=== PATIENT | male | born 1930 | race Caucasian/White ===

== ENCOUNTER → 2017-04-26 | Day surgery (SDC) | payer MEDICARE ==
[~2017-04-26] VITALS: Ht 180.3 cm; Wt 85.7 kg
[2017-04-26] VITALS (10 sets, daily range): BP systolic 118–147; BP diastolic 56–88; PULSE 57–64; RESP 15–20; O2SAT 96–100
[~2017-04-26] MED LIST: ATOR20TA65 PO; Dexamethasone 4 mg/mL Inj IVPUSH PRN; EPHEDrine Sulfate 50 mg/mL Inj IVPUSH PRN; FUR20 PO; HYDROmorphone 1 mg/mL Inj IVPUSH PRN; LISI10TA PO; Lactated Ringer's 1,000 ML IV ONE; Lactated Ringer's 1,000 ML IV SCH; Lactated Ringer's 500 ML IV PRN; MAGN250T29 PO; METO100T3 PO; MULT-1086 PO; MetoCLOpramide 5 mg/mL 2 mL Inj IVPUSH PRN; OMEG500C PO; Ondansetron 2 mg/mL 2 mL Inj IVPUSH PRN; Phenylephrine 10,000 mCg/mL Inj IVPUSH PRN; Phenylephrine/NS 100 mCg/mL 10 mL Syringe IVPUSH ONE; Propofol 10,000 mCg/mL 20 mL Inj ONE; RIVA15TA PO; Succinylcholine Chloride 20 mg/mL 5 mL Inj ONE; fentaNYL-PF 50 mCg/mL 2 mL Inj IVPUSH PRN; fentaNYL-PF 50 mCg/mL 2 mL Inj ONE
--- NOTE | 2017-04-26 14:33 | PCM.HPANE ---
Patient Data Surgeon Admitting Provider: Attending Provider:Jigar Law MD Primary Care Physician:Heber Du DO Other Provider:Dara Julien Anesthesia Reason for Visit Common Bile Duct Mass Ht/WT & BMI Height (Feet): 5 Height (Inches): 11 Weight (Kilograms): 85.73 Body Mass Index 26.00 Allergies Coded Allergies: Penicillins (Verified Allergy, Severe, 04/26/17) Past Anesthesia History Anesthesia History: Denies:: Abnormal Airway, Anesthesia Reactions, Difficult Intubation, Fam Anesthesia Reaction, Fam Malignant Hypertherm, Malignant Hyperthermia Diabetes History Hx Diabetes?: No MRSA MRSA: No Medications Blood Thinner: Xarelto Last Dose Blood Thinner: Apr 22, 2017 Home Meds Incl Beta Sarika: Yes Date Beta Sarika Taken: Apr 26, 2017 Time Beta Sarika Taken: 0700 Reported Medications Magnesium Oxide (Magnesium)250 Mg Zenzrf116 Mg PO DAILY 11/16/16 Multivit-Min/Iron Fum/Folic AC (Wgjzu-Hqvcmsb-Zgvtrael Tablet)7.5 Mg Iron-400 Mcg Tablet1 Each PO DAILY 11/16/16 Rivaroxaban (Xarelto)15 Mg Cfksho96 Mg PO DAILY 11/16/16 Furosemide 20 Mg Tab30 Mg PO DAILY Ref 0 11/16/16 Lisinopril 10 Mg Txmitw81 Mg PO DAILY Ref 0 11/16/16 Metoprolol Tartrate 100 Mg Zhapyt942 Mg PO BID Ref 0 11/16/16 Atorvastatin Calcium 20 Mg Bvfmya98 Mg PO DAILY Ref 0 11/16/16 [place]-3 Fatty Acids (Fish Oil)500 Mg Capsule.dr1,000 Mg PO BID 06/17/14 History History of ENT Problems?: No HEENT History: Positive for:: Hearing Problem Denies:: Abnormal Airway Cataracts (had surg 2013) Difficult Intubation Dysphagia Sinus Problem Denture Type: None Teeth Condition: Missing Teeth Hx of Heart Problems?: Yes Cardiovascular History: Positive for:: Atrial Fibrillation (A FIB/FLUTTER/ ABLATION/A FIB NOW NSR & PACER) Cardiac Surgery (HEART CATH 2004/CABG 3 VESSEL X2/ABLATION/PACER) Edema Hypertension Irregular Heartbeat Pacemaker Denies:: AICD Chest Pain Congestive Heart Failure Heart Murmur Rheumatic Fever Thrombophlebitis Valvular Heart Disease Other History/Comments S/P PACEMAKER, AND cabg, GOOD ACTIVITY TOLERANCE Hx of Respiratory Problem?: No Respiratory History: Positive for:: Chest Surgery (HEART BYPASS) Denies:: Asthma COPD Cough Dyspnea Emphysema Hemoptysis Pneumonia Tuberculosis Other History/Comment ROS negative, denies CPAP Hx Neurologic Problems?: No Neurological History: Positive for:: Dizziness (MENIERE'S) Denies:: Alzheimer's Disease CVA Dementia Headaches Parkinson's Disease Seizures Hx of GI Problems?: Yes Other History/Comment common bile duct mass Hx of Problems?: No Genitourinary History: Denies:: HX of Hemodialysis Kidney Stones Urinary Tract Infection HX of Peritoneal Dialysis: No Male Hx: Positive for:: Prostate Problems (PROSTATE CA 1994) Denies:: Scrotal Mass Testicular Surgery Skin History: Denies:: History Skin Disorders? Pressure Ulcers Hx Musculoskeletal Problems?: No Musculoskeletal History: Denies:: Back Injury Fibromyalgia Joint Replacement Musculoskeletal Trauma Hx of Psycho/Social Problems?: No Psycho Social History: Denies:: Anxiety Bipolar Disorder Hx Depression Suicide Attempt Hx Surgeries?: Yes (ileostomy, colectomy,hernia repair, PACER, BYPAS X2,) Hx Any Other Health Problems?: Yes Other History: Positive for:: Cancer ([id number]) Hospitalization Denies:: Endocrine Disease Thyroid Disease History Blood Transfusions: Positive for:: Blood Transfusions Denies:: Blood Transfuse Reaction Hx Diabetes: No Hx Alcohol Use: Yes (occasionally)Hx Substance Use: No Smoking Status: Former Smoker Have You Smoked inLast 12 mo: No Stop/Bang Treated for Sleep Apnea?: No Do You Have a CPAP Machine?: No S-Snoring: Do You Snore Loudly: No T-Tired: feel tired, fatigued: No O-Obsered: Observed not breath: No P-Blood Pressure: treated: Yes B- Body Mass Index > 35 kg/m2: Yes A- Age over 50: Yes N- Neck Large Circumference: No G- Gender Male: Yes RAHEL Total Score: 4 RAHEL Category 2: Yes Risk Assessment Category Category 1A: Patient has history of documented sleep apnea, and HAS NOT received any narcotic, sedative or anesthesia administration during this stay. Category 1B: Patient has history of documented sleep apnea, and HAS received any narcotic , sedative or anesthesia administration during this stay Category 2: Patient has SUSPECTED Obstructive Sleep Apnea, and HAS received any narcotic , sedative or anesthesia administration during this stay. Category 3: Patient has SUSPECTED Obstructive Sleep Apnea and HAS NOT received narcotic, sedative or anesthesia administration during this stay. Category 4: Outpatient in Procedural Areas with known sleep apnea or who screen positive for High Risk via the STOP/BANG questionnaire. Exam Exam Vital Signs Vital Signs Date Time Temp Pulse Resp B/P Pulse Ox O2 Delivery O2 Flow Rate FiO2 04/26/17 14:06 57 147/88 98 Room Air General Appearance: Alert, Oriented X3, Cooperative, No Acute Distress HEENT/AIRWAY: MP 2 Lungs: Clear to Auscultation, Normal Air Movement Heart: Exam Unremarkable, Regular Rate/Rhythm, No Murmurs/Rubs/Gallops Plan Impression Patient chart reviewed, patient interviewed and anesthestic plan with risks, benefits, and alternatives discussed, and informed consent obtained. ASA Physical Status: ASA3 Severe Disease Anesthetic Plan: GA Bene/Risks/Altern/Consents: Yes HP Complete Prior to Induction: Yes Chema Santos MD Apr 26, 2017 14:33
--- NOTE | 2017-04-26 17:14 | PCM.ANEP1 ---
Post Anesthesia PACU Phase 1 Assessment Vital Signs Vital Signs Date Time Temp Pulse Resp B/P Pulse Ox O2 Delivery O2 Flow Rate FiO2 04/26/17 17:10 60 16 126/61 97 Room Air 04/26/17 17:05 62 15 130/72 100 Room Air 04/26/17 17:00 36.1 62 16 144/75 100 Simple Mask 8 04/26/17 14:06 57 147/88 98 Room Air Anesthetic Administered: GA Level of Alertness: Awake, talking Pain: No Nausea or Vomiting: No CV Function & Hydration Stable: Yes Airway Device: Oxygen Delivery: Simple Mask Lungs: Clear to Auscultation, Normal Air Movement Dermatome Level: Full Sensation PACU Phase 2 Assessment Complications: No Follow up Care: No Patient Instructions Provided: N/A Chema Santos MD Apr 26, 2017 17:14
--- NOTE | 2017-04-26 17:48 | ENDO ---
[address] [address] ENDOSCOPY PROCEDURE PATIENT: SOPHIE MORAN : 1930 MR#: [id number] ADMIT: 04/26/2017 JOB ID: [id number] DATE OF SERVICE: 04/26/2017 PROCEDURE: Endoscopic ultrasound. INDICATIONS: The patient had cross sectional imaging performed which suggested the possibility of additional CBD stone versus mass. The patient has an indirect hyperbilirubinemia, however, the remainder of his liver function tests are normal. He has no complaints from a GI standpoint at the present time. INSTRUMENTS USED: GF-UCT 180 linear echoendoscope as well as GIF H 180 standard upper endoscope and a TJF Q180V side-viewing duodenoscope. Please see Dr. Erich Santos's anesthesia report for details regarding ASA classification, Mallampati score, and general anesthesia. PROCEDURE DETAILS: After informed consent was obtained, the patient was brought into the GI suite, where he was placed under general anesthesia. He was placed in a left lateral decubitus position. The standard EGD scope was inserted through the bite block and advanced without difficulty to the second portion of the duodenum. FINDINGS: Normal exam. Next, the linear echo endoscope was then introduced through the bite block and advanced without difficulty to the second portion of the duodenum. Linear echo endoscopic imaging demonstrated the followin. In the distal CBD, there appeared to be a circumferential hypo and hyperechoic filling lesion in the distal CBD. This lesion appeared round and measured approximately 8mm. This lesion cast a shadow suggestive of a CBD stone. The bile duct in the distal CBD measured approximately 8-9 mm. Flow was noted in the portal vein. 2. The pancreatic duct was identified and appeared to be normal in course and caliber. 3. The pancreatic parenchyma was slightly hyperechoic. 4. The splenic flow was identified in the splenic vein and artery. 5. The celiac axis was identified and appeared unremarkable. 6. Gallbladder was seen and no obvious stones were noted in the bile duct. 7. Examined portions of left lobe of liver were unremarkable. 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 The EUS scope was then withdrawn and then the side-viewing duodenoscope was introduced without difficulty to the second portion of the duodenum. The ampulla was identified and appeared unremarkable. Using the Olympus CleverCut tome, selective biliary cannulation was achieved with wire guidance. The pancreatic duct was not intubated or injected with contrast. Initial cholangiogram demonstrated a dilated distal common bile duct measuring approximately 8.5 mm with complete lack of contrast in the distal CBD suggestive of mass lesion. Filling of the intrahepatics was noted which appeared unremarkable. The common hepatic duct measured approximately 6-7 mm. With the [place] cut tome I went through this mass lesion several time and appeared to be friable. Next, a moderate-size sphincterotomy was performed. Following sphincterotomy, did not appreciate any flow of contrast or bile. I elected to perform brushings of this shelf-like area in the distal CBD. This lesion in the distal CBD appeared to be friable. Following brushings, I placed a 10-[place] x 7 cm plastic stent. Following placement of the stent, there was rapid flow of contrast and bile seen. IMPRESSION: Endoscopic retrograde cholangiopancreatography status post sphincterotomy and biliary stent placement for distal common bile duct mass. RECOMMENDATIONS: Await common bile duct brushings. If brushings are inconclusive, will refer for spy glass evaluation of the distal CBD lesion. Additionally, would recommend holding anticoagulation for 48 hours. COMPLICATIONS: None. ESTIMATED BLOOD LOSS: 0. MTDD
--- NOTE | 2017-04-26 20:06 | DRSVH ---
PROCEDURE: X-RAY E.R.C. BILIARY DUCTS ([id number]) INDICATIONS: STONE IN BILIARY DUCT TECHNIQUE: Fluoroscopic spot films were acquired by the gastroenterology service during ERCP procedu re. COMPARISON: None. FINDINGS: 4 C-arm films are presented. These show an endoscope from the superior aspect. There is a w brigette into the common bile duct and into the hepatic duct. There is suggestion of a filling defect in t he common hepatic duct into locations. The third and fourth images show a biliary stent in place with some drainage of contrast from the endoscopic cholangiogram. IMPRESSION: 1. ERC shows likely 2 filling defects in the common hepatic duct. 2. Biliary stent placed. Dictated by: Chinedu Corbett M.D. on 04/26/2017 at 20:02 Approved by: Chinedu Corbett M.D. on 04/26/2017 at 20:04
--- NOTE | 2017-05-02 16:15 | PATH ---
SURGICAL PATHOLOGY Attending Physician:Cony Hunt CASE STATUS: Signed Out PATIENT NAME: SOPHIE MORAN PID: [id number] : 1930 DATE COLLECTED:04/26/2017 00:00 SPECIMEN: Common Bile Duct CLINICAL HISTORY: 1). COMMON BILE DUCT BRUSHING FINAL DIAGNOSIS: Common Bile Duct, Brushing: Strips of biliary and small bowel mucosa with focal active inflammation. Negative for dysplasia or malignancy. Scant fragments of pigmented material suggestive of choledocholithiasis. ICD10: K83.1 NOTE: As part of routine quality assurance project manager, Dr. Lawler has reviewed this case and agrees with the above interpretation. GROSS DESCRIPTION: The specimen is received in one formalin filled container labeled with the patient's name, sublabeled "common bile duct brushing" scraped from a wire brush and filtered is a scant aggregate of mucoid material which is filtered wrapped and entirely submitted in one cassette 04/27/2017DC ICD-9 CODES: CPT CODES: 1: 96897 Electronically Signed Out Gagan Avila MD, Ph.D. [facility] [address], [place] [address] Technical component performed at [facility], [address] [place] [address] Ave[address], [place], [address]
== END | disposition home or self-care (01) ==
LOC: END 02:28
PROVIDERS: ATTEND Internal Medicine Gastroenterology
DX: K83.0 Cholangitis (principal); C61 Malignant neoplasm of prostate; C78.80 Secondary malignant neoplasm of unspecified digestive organ; I10 Essential (primary) hypertension; Z95.1 Presence of aortocoronary bypass graft; Z95.0 Presence of cardiac pacemaker; Z93.2 Ileostomy status
CPT/HCPCS: 43237; 43262; 43274; 74328; J0330; J2370; J2704; J3010; J7120; Q9967

== ENCOUNTER 2017-04-27 18:06 | Emergency (ER) | payer MEDICARE ==
[~2017-04-27] VITALS: Ht 182.9 cm; Wt 84.1 kg
[~2017-04-27 18:06] MED LIST changes: -Dexamethasone 4 mg/mL Inj IVPUSH PRN; -EPHEDrine Sulfate 50 mg/mL Inj IVPUSH PRN; -HYDROmorphone 1 mg/mL Inj IVPUSH PRN; -Lactated Ringer's 1,000 ML IV ONE; -Lactated Ringer's 1,000 ML IV SCH; -Lactated Ringer's 500 ML IV PRN; -MetoCLOpramide 5 mg/mL 2 mL Inj IVPUSH PRN; -Ondansetron 2 mg/mL 2 mL Inj IVPUSH PRN; -Phenylephrine 10,000 mCg/mL Inj IVPUSH PRN; -Phenylephrine/NS 100 mCg/mL 10 mL Syringe IVPUSH ONE; -Propofol 10,000 mCg/mL 20 mL Inj ONE; -Succinylcholine Chloride 20 mg/mL 5 mL Inj ONE; -fentaNYL-PF 50 mCg/mL 2 mL Inj IVPUSH PRN; -fentaNYL-PF 50 mCg/mL 2 mL Inj ONE
[2017-04-27 18:08] VITALS: BP 163/77; PULSE 60; RESP 23; O2SAT 96
[2017-04-27 18:28] LABS: BASOPHILS % (AUTO) 0.1 % (0-3); EOSINOPHILS % (AUTO) 1.1 % (0-5); Mean Corpuscular Hemoglobin 31.1 pg (27.0-35.0); NEUTROPHILS % (AUTO) 73.8 % (40-74); Platelet Count 146 bil/L (150-400)
[2017-04-27 18:39] LABS: Magnesium 1.9 mg/dL (1.6-2.6)
--- NOTE | 2017-04-27 18:41 | ED.REPORT ---
HPI-Preg Under 20 Weeks Date of Service Apr 27, 2017 ED Provider: Nursing Notes Stated Complaint: ABDOMINAL PAIN Chief Complaint: Male Abdominal Pain Allergies: Coded Allergies: Penicillins (Verified Allergy, Severe, 04/26/17) Scheduled Atorvastatin Calcium (Atorvastatin Calcium) 20 Mg Tablet 20 MG PO DAILY Furosemide (Furosemide) 20 Mg Tab 30 MG PO DAILY Lisinopril (Lisinopril) 10 Mg Tablet 10 MG PO DAILY Magnesium Oxide (Magnesium) 250 Mg Tablet 250 MG PO DAILY Metoprolol Tartrate (Metoprolol Tartrate) 100 Mg Tablet 100 MG PO BID Multivit-Min/Iron Fum/Folic AC ([place]rpj-Dmmqgik-Ryltjhpg Tablet) 7.5 Mg Iron-400 Mcg Tablet 1 EACH PO DAILY [place]-3 Fatty Acids (Fish Oil) 500 Mg Capsule.dr 1,000 MG PO BID Rivaroxaban (Xarelto) 15 Mg Tablet 15 MG PO DAILY Past Medical History Past Medical History Angina A-fib MENIERE'S disease Reports: Cancer, Coronary artery disease, Hyperlipidemia, Hypertension Past Surgical History Cardiac Surgery (HEART CATH 2004/CABG 3 VESSEL X2/ABLATION/PACER) Pacemaker 10/2009 ILEOSTOMY PERISTOMAL HERNIA-ADHESOLYSI Smoking History Former Smoker Social History Alcohol Use: "Social" Drug Use: Denies drug use Physical Exam Initial Vital Signs Vital Signs (First) Date Time Temp Pulse Resp B/P Pulse Ox O2 Delivery O2 Flow Rate FiO2 04/27/17 18:08 36.3 60 23 163/77 96 Room Air Interpretation & Diagnostics Lab Results Interpretation Result Diagram: 04/27/17 1819 Test 04/27/17 18:19 White Blood Count 9.5th/mm3 (3.8-10.1) Red Blood Count 4.70mil/mm3 (4.40-5.80) Hemoglobin 14.6g/dL (13.8-17.2) Hematocrit 42.3% (41.0-50.0) Mean Corpuscular Volume 90.0fL (81-100) Mean Corpuscular Hemoglobin 31.1pg (27.0-35.0) Mean Corpuscular Hemoglobin Concent 34.5% (32.0-37.0) Red Cell Distribution Width 13.3% (12.3-15.4) Platelet Count 146bil/L (150-400) Neutrophils (%) (Auto) 73.8% (40-74) Lymphocytes (%) (Auto) 14.8% (14-46) Monocytes (%) (Auto) 10.0% (4-12) Eosinophils (%) (Auto) 1.1% (0-5) Basophils (%) (Auto) 0.1% (0-3) Discharge & Departure Referrals: Heber Du DO (PCP) Colt Souza DO Apr 27, 2017 18:40
--- NOTE | 2017-04-27 18:41 | ED.REPORT ---
HPI-Abd Pain M 40 and Over Date of Service Apr 27, 2017 ED Provider: Colt Souza DO The pt is an 86 y/o male with a hx of A-fib, CAD, hyperlipidemia, HTN, and meniere's disease who presents to the ED via EMS complaining of upper abdominal pain, onset today. Associated sx include nausea. The pt had a stent placed in his common biliary duct yesterday. He did not have any pain or nausea after he was discharged from the hospital. The pt was given Fentanyl and Zofran en route. He denies fever, diarrhea, and hematochezia. He is asymptomatic in the ED and states he now feels fine. Nursing Notes Stated Complaint: ABDOMINAL PAIN Chief Complaint: Male Abdominal Pain Nursing Notes Reviewed: Yes Allergies: Coded Allergies: Penicillins (Verified Allergy, Severe, 04/26/17) Scheduled Atorvastatin Calcium (Atorvastatin Calcium) 20 Mg Tablet 20 MG PO DAILY Furosemide (Furosemide) 20 Mg Tab 30 MG PO DAILY Lisinopril (Lisinopril) 10 Mg Tablet 10 MG PO DAILY Magnesium Oxide (Magnesium) 250 Mg Tablet 250 MG PO DAILY Metoprolol Tartrate (Metoprolol Tartrate) 100 Mg Tablet 100 MG PO BID Multivit-Min/Iron Fum/Folic AC (Bxedb-Nyoptay-Aitblygy Tablet) 7.5 Mg Iron-400 Mcg Tablet 1 EACH PO DAILY [place]-3 Fatty Acids (Fish Oil) 500 Mg Capsule.dr 1,000 MG PO BID Rivaroxaban (Xarelto) 15 Mg Tablet 15 MG PO DAILY General Time Seen by MD: 18:40 Chief Complaint Abdominal pain Hx Obtained From: Patient Arrived By: Ambulance Sudden in Onset?: Yes Onset Occurred: 1 - 4 hours ago Symptom Duration: Since onset Progression since Onset: Resolved Location: : Abdomen upper Quality: Painful Radiation: : Does not radiate Severity: Current: No pain currently Severity: Maximum: Severe Recent Healthcare: Recent doctor visit, Previous surgery Past Medical History Past Medical History Angina A-fib MENIERE'S disease Reports: Cancer, Coronary artery disease, Hyperlipidemia, Hypertension Past Surgical History Cardiac Surgery (HEART CATH 2004/CABG 3 VESSEL X2/ABLATION/PACER) Pacemaker 10/2009 ILEOSTOMY PERISTOMAL HERNIA-ADHESOLYSI Smoking History Former Smoker Social History Alcohol Use: "Social" Drug Use: Denies drug use Ambulatory Status Independent Review of Systems Constitutional: Denies: Fever GI: Reports: Abdominal pain, Nausea, Denies: Diarrhea, Hematochezia Complete sys rev & neg: except as marked. Physical Exam Initial Vital Signs Vital Signs (First) Date Time Temp Pulse Resp B/P Pulse Ox O2 Delivery O2 Flow Rate FiO2 04/27/17 18:08 36.3 60 23 163/77 96 Room Air Initial VS: Reviewed Head / Eyes: Atraumatic, Normocephalic, PERRL Neck: Supple, Non-tender, Full range of motion Extremities: Vascular intact, Neuro intact, No swelling, No tenderness Skin: Warm, Dry, No cyanosis Neurologic: Alert, Oriented, Nonfocal General/Constitutional: Awake, Alert, No acute distress, Well appearing, Cooperative Respiratory / Chest: Atraumatic, Breath sounds NL, Breath sounds = bilat, No respiratory distress, No rales, No rhonchi, No wheezing Cardiovascular: Heart rate NL, Regular rhythm, Heart sounds NL, No gallop, No murmurs, No rubs Abdomen: Atraumatic, Soft, No guarding, No rebound Right upper quadrant tenderness to palpation. Back: Atraumatic, Full range of motion, Painless range of motion Interpretation & Diagnostics Lab Results Interpretation Result Diagram: 04/27/17181804/27/17 1819 Test 04/27/17 18:19 White Blood Count 9.5th/mm3 (3.8-10.1) Red Blood Count 4.70mil/mm3 (4.40-5.80) Hemoglobin 14.6g/dL (13.8-17.2) Hematocrit 42.3% (41.0-50.0) Mean Corpuscular Volume 90.0fL (81-100) Mean Corpuscular Hemoglobin 31.1pg (27.0-35.0) Mean Corpuscular Hemoglobin Concent 34.5% (32.0-37.0) Red Cell Distribution Width 13.3% (12.3-15.4) Platelet Count 146bil/L (150-400) Neutrophils (%) (Auto) 73.8% (40-74) Lymphocytes (%) (Auto) 14.8% (14-46) Monocytes (%) (Auto) 10.0% (4-12) Eosinophils (%) (Auto) 1.1% (0-5) Basophils (%) (Auto) 0.1% (0-3) Sodium Level 137mEq/L (134-144) Potassium Level 3.5mEq/L (3.5-5.2) Chloride Level 99mEq/L (97-108) Carbon Dioxide Level 22mmol/L (18-29) Blood Urea Nitrogen 20mg/dL (8-27) Creatinine 1.07mg/dL (0.76-1.27) Estimat Glomerular Filtration Rate 69mL/min (>59) Glucose Level 145mg/dL (60-99) Calcium Level 9.1mg/dL (8.5-10.1) Magnesium Level 1.9mg/dL (1.6-2.6) Total Bilirubin 4.4mg/dL (0.0-1.2) Aspartate Amino Transf (AST/SGOT) 41U/L (0-50) Alanine Aminotransferase (ALT/SGPT) 30U/L (0-44) Alkaline Phosphatase 109U/L (25-160) Total Protein 7.1g/dL (6.4-8.4) Albumin 4.1g/dL (3.4-5.0) Lipase 34U/L (13-60) CT Abd / Pelvis Interpretation IMPRESSION: 1. Biliary stent is appropriately positioned. No intrahepatic or extrahepatic biliary dilatation suggesting normal biliary stent function. 2. Pneumobilia and air in the gallbladder compatible with recent ERCP. 3. No dilated loops of bowel. 4. No free fluid or air. 5. No inflammatory changes. 6. Status post colectomy with ileostomy formation. 7. Atherosclerosis including dense atherosclerotic calcifications in the visualized coronary vasculature. Dictated by: Elizabeth Bui MD, PhD on 04/27/2017 at 19:36 Approved by: Elizabeth Bui MD, PhD on 04/27/2017 at 19:43 Study type: Abdominal CT IV contrast Interpretation / Wet Read by: Interpret - Radiologist Re-Eval/Medical Decision Med Decision/Clinical Course Recent postoperative pain. Discussed with GI. No evidence of post ERCP pancreatitis or perforation. Patient is feeling better. Will be discharged to follow-up closely with GI. Return And follow-up precautions given. Time of Eval: 18:50 Re-Evaluation/Progress Note: Discussed lab results and plan to consult GI. The pt understands and agrees with the plan. All questions answered. Time of Eval: 19:49 Re-Evaluation/Progress Note: Rechecked pt. Discussed lab results, imaging results, diagnosis and plan to discharge. Pt understands and agrees with the plan. F/U instruction and RTER warning given. All questions addressed. Consultation : Referral / Consult Name: Chema Briones MD Call Returned at: 19:10 [place]: Agrees with eval, Agrees with plan Note: Recommends CT ABD/PELVIS and lipase. If negative, discharge with instructions to follow up tomorrow. Differential Diagnosis: Positive: Acute abdominal pain, Cholangitis, Cholecystitis, Pancreatitis perforation, Counseled Regarding: Diagnosis, Lab results, Need for follow-up, When/why to return to ED Discharge & Departure Primary Impression: Epigastric pain Disposition: Home Vital Signs - All Vital Signs Date Time Temp Pulse Resp B/P Pulse Ox O2 Delivery O2 Flow Rate FiO2 04/27/17 20:29 36.8 62 23 130/76 95 Room Air 04/27/17 18:08 36.3 60 23 163/77 96 Room Air )( All Prior VS Reviewed: Yes Condition: Stable Additional Instructions: Your workup in the ER is reassuring. Use Zofran and [place] as needed for pain. Follow-up with GI in the morning. Return to the ER as needed for severe uncontrolled pain, high fever, persistent vomiting, or any other concerns Referrals: Heber Du DO (PCP) Jigar Law MD Scribe Attestation Portions of this note were transcribed by Madyson Vasquez. I,, personally performed the history,physical exam and medical decision-making;I reviewed and confirmed the accuracy of the information in the transcribed note. Signed by Lilia Zuniga. 04/27/17 copies to: Jigar Law MD; Heber Du Timothy S DO Apr 27, 2017 18:41 Madyson Vasquez Apr 27, 2017 18:52
--- NOTE | 2017-04-27 19:45 | DRSVH ---
PROCEDURE: CT ABDOMEN AND PELVIS WITH CONTRAST ([id number]) INDICATIONS: ruq pain post ERCP and stent placement TECHNIQUE: After the administration of intravenous contrast, 5 mm thick sections acquired from the diaphragm to the symphysis. 5 mm coronal and sagittal reformats were acquired. For radiation dose reduction, the following was used: automated exposure control, adjustment of mA and/or kV according to patient siz e. COMPARISON: [facility], CT, CT ABD W&WO CON, 11/03/2016, 8:32. [facility], C T, CT ABD RENAL PROTOCOL, 10/01/2016, 12:04. [facility], CT, ABD/PELVIS W&WO CON (PNL), , 8:33. [facility], CT, ABD/PELVIS W/CON (PNL), 05/17/2012, 11:08. [facility], CT, ABD/PELVIS W/CON (PNL), 09/16/2011, 8:13. [facility], CT, ABD/PELVIS W/CON (PNL), 01/02/2009, 15:53. [facility], CT, ABD/PELVIS W/CON (PNL), 07/05/2006, 17:42. FINDINGS: Image quality: Excellent. ABDOMEN: Lung bases: Lung bases are clear of acute opacities. Heart is mildly enlarged. Atherosclerotic calc ifications noted in the visualized coronary vasculature. Presence of cardiac pacer leads noted. Solid organs: Liver and spleen are normal in size and enhancement. Scattered punctate calcifications compatible sequela prior granulomatous disease noted the liver. Pneumobilia noted in the left intra hepatic biliary tree compatible with recent ERCP. Air is noted in the gallbladder compatible with re cent ERCP. Presence of a biliary stent is noted. Biliary stent projects from the common hepatic shantal t to the ampulla. No intra-hepatic or extrahepatic biliary tree dilatation. Pancreas enhances normal ly. Fatty atrophy of the pancreas is stable. No adrenal nodules. Kidneys demonstrate normal size and enhancement, without hydronephrosis. Renal cysts are stable. Peritoneum and bowel: Postsurgical changes compatible with colectomy with left lower quadrant ileost lily formation noted. Nodes and vessels: No retroperitoneal or mesenteric adenopathy by size criteria. Aorta and inferior vena cava are normal in size. Scattered atherosclerotic calcifications are noted in the abdominal an d pelvic vasculature. Miscellaneous: No ventral hernias. PELVIS: Genitourinary: Bladder wall thickness is normal. Prostate radiotherapy seeds noted. Miscellaneous: No inguinal hernias or adenopathy. Bones: No suspicious bony lesions. No vertebral body compression fractures. Spine degenerative dise ase and facet arthropathy noted. IMPRESSION: 1. Biliary stent is appropriately positioned. No intrahepatic or extrahepatic biliary dilatation ortiz ggesting normal biliary stent function. 2. Pneumobilia and air in the gallbladder compatible with recent ERCP. 3. No dilated loops of bowel. 4. No free fluid or air. 5. No inflammatory changes. 6. Status post colectomy with ileostomy formation. 7. Atherosclerosis including dense atherosclerotic calcifications in the visualized coronary vascula ture. Dictated by: Elizabeth Bui MD, PhD on 04/27/2017 at 19:36 Approved by: Elizabeth Bui MD, PhD on 04/27/2017 at 19:43
[2017-04-27] MEDS ORDERED: _HYDROcodone/APAP 5-325 mg Tablet PO PRN (20:05)
[2017-04-27] MEDS ORDERED: _Ondansetron ODT 4 mg Tablet PO PRN (20:05)
[2017-04-27 20:29] VITALS: BP 130/76; PULSE 62; RESP 23; O2SAT 95
== END 2017-04-27 20:31 | disposition home or self-care (01) ==
LOC: SED 18:06
DX: R10.13 Epigastric pain (principal); I11.9 Hypertensive heart disease without heart failure; I25.10 Atherosclerotic heart disease of native coronary artery without angina pectoris; I48.91 Unspecified atrial fibrillation; E78.5 Hyperlipidemia, unspecified; Z95.0 Presence of cardiac pacemaker; Z87.891 Personal history of nicotine dependence; Z88.0 Allergy status to penicillin
CPT/HCPCS: 36415; 74177; 80053; 83690; 83735; 85025; 99284; Q9967

== ENCOUNTER 2017-05-08 15:17 | Inpatient (IN) | payer MEDICARE ==
[~2017-05-08] VITALS: Ht 182.9 cm; Wt 85.4 kg
[2017-05-08] VITALS (7 sets, daily range): BP systolic 95–129; BP diastolic 44–79; PULSE 60–74; RESP 15–23; O2SAT 94–99
--- NOTE | 2017-05-08 15:48 | ED.REPORT ---
HPI-GI Bleed Date of Service May 08, 2017 ED Provider: Gagan Biswas MD Pt is a 86 y/o male with a history of Mnire's disease, CHF, pacemaker, hypertension, CABG, and a-fib on Xarelto who presents to the ED with concern for a GI bleed with melena in his colostomy bag onset today. Additional symptoms include lightheadedness that is worse with standing onset two days ago , diaphoresis, SOB onset one week, nausea, and generalized weakness. He denies chest pain, fevers, or abdominal pain. He had a stent placed in his biliary duct on 04/26/17. He took his blood pressure at home while sitting and it was 122/68 which is normal. Nursing Notes Stated Complaint: BLEEDING POST EGD Chief Complaint: General Complaint Nursing Notes Reviewed: Yes (Meds not reconciled - patient anticoagulated) Allergies: Coded Allergies: Penicillins (Verified Allergy, Severe, Doesn't Remember - 40 years ago, 05/08/17) Scheduled Atorvastatin Calcium (Atorvastatin Calcium) 20 Mg Tablet 20 MG PO HS Furosemide (Furosemide) 20 Mg Tab 30 MG PO QAM Lisinopril (Lisinopril) 10 Mg Tablet 10 MG PO QAM Magnesium Oxide (Magnesium) 250 Mg Tablet 250 MG PO QAM Metoprolol Tartrate (Metoprolol Tartrate) 100 Mg Tablet 100 MG PO BID Multivit-Min/Iron Fum/Folic AC (Yfctl-Kjncmwd-Wlymppxl Tablet) 7.5 Mg Iron-400 Mcg Tablet 1 EACH PO DAILY [place]-3 Fatty Acids (Fish Oil) 500 Mg Capsule. 1,000 MG PO BIDWM Rivaroxaban (Xarelto) 15 Mg Tablet 15 MG PO DAILY General Time Seen by Provider: 15:57 Chief Complaint Chief Complaint: Other (Concern for GI bleed ) Hx Obtained From: Patient, Spouse Arrived By: Walk-in Severity: Current: Mild Severity: Maximum: Mild Recent Healthcare: Recent doctor visit, Recent hospitalization Similar Sx Previous: Yes Past Medical History Past Medical History Notes: Oncologists: Dr. Patrick, Dr. Antonio (radiation) Past Medical History Angina Atrial fibrilllation (anticoagulated) MENIERE'S disease Common bile duct mass, pathology negative on biopsy 04/26/2017 History of prostate cancer Medical diagnosis of right upper lobe mass with hyper-med volatile behavior on PET scan, clinically consistent with a non-small cell lung CA per oncology consultation by Dr. 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 CABG in 1995, reviewed 2004 for common bile duct mass pathology negative for malignancy Stent in biliary duct on 04/26/17 Smoking History Former Smoker Social History Alcohol Use: "Social" Drug Use: Denies drug use Other Social History: Good social support Ambulatory Status Independent Review of Systems Constitutional: Reports: Weakness - generalized, Denies: Fever Respiratory: Reports: Shortness of breath (onset one week) Cardiovascular: Denies: Chest pain GI: Reports: Melena (in colostomy bag onset today ), Nausea, Denies: Abdominal pain Skin: Reports Diaphoresis Neurologic: Reports: Lightheaded Complete sys rev & neg: except as marked. Physical Exam Initial Vital Signs Vital Signs (First) Date Time Temp Pulse Resp B/P Pulse Ox O2 Delivery O2 Flow Rate FiO2 05/08/17 15:36 36.5 63 15 115/49 97 05/08/17 16:29 Room Air Initial VS: Reviewed, Vital signs normal Head / Eyes: Atraumatic, Normocephalic Neck: Supple, Full range of motion Extremities: Vascular intact, Neuro intact, No swelling, No tenderness Skin: Warm, Dry, No cyanosis Neurologic: Alert, Oriented, Nonfocal Psychiatric: Mood/affect normal, Behavior normal, Normal thought content General/Constitutional: Awake, Alert Appearance / Presentation: Positive: Pale Fatigued Respiratory / Chest: Atraumatic, Breath sounds NL, Breath sounds = bilat, No respiratory distress Cardiovascular: Heart rate NL, Regular rhythm, Heart sounds NL No lower leg edema Abdomen: Soft, Non-tender Rectum: Colostomy bag Interpretation & Diagnostics Lab Results Interpretation Result Diagram: 05/08/17 1752 05/08/17 1600 Test 05/08/17 16:00 05/08/17 17:52 White Blood Count 6.5th/mm3 (3.8-10.1) Red Blood Count 4.46mil/mm3 (4.40-5.80) Mean Corpuscular Volume 91.0fL (81-100) Mean Corpuscular Hemoglobin 31.4pg (27.0-35.0) Mean Corpuscular Hemoglobin Concent 34.5% (32.0-37.0) Red Cell Distribution Width 13.5% (12.3-15.4) Platelet Count 175bil/L (150-400) Neutrophils (%) (Auto) 63.3% (40-74) Lymphocytes (%) (Auto) 23.0% (14-46) Monocytes (%) (Auto) 9.7% (4-12) Eosinophils (%) (Auto) 3.1% (0-5) Basophils (%) (Auto) 0.3% (0-3) Prothrombin Time 11.8sec (8.1-12.5) Prothromb Time International Ratio 1.10ratio Sodium Level 133mEq/L (134-144) Potassium Level 4.6mEq/L (3.5-5.2) Chloride Level 98mEq/L (97-108) Carbon Dioxide Level 18mmol/L (18-29) Blood Urea Nitrogen 31mg/dL (8-27) Creatinine 1.38mg/dL (0.76-1.27) Estimat Glomerular Filtration Rate 52mL/min (>59) Glucose Level 113mg/dL (60-99) Calcium Level 9.1mg/dL (8.5-10.1) Total Bilirubin 1.8mg/dL (0.0-1.2) Aspartate Amino Transf (AST/SGOT) 42U/L (0-50) Alanine Aminotransferase (ALT/SGPT) 53U/L (0-44) Alkaline Phosphatase 199U/L (25-160) Troponin T < 0.010ug/L (0.0-0.011) Total Protein 7.3g/dL (6.4-8.4) Albumin 3.7g/dL (3.4-5.0) Lipase 32U/L (13-60) Hemoglobin 13.6g/dL (13.8-17.2) Hematocrit 39.6% (41.0-50.0) Lab Results Interpretation: CBC normal, serial hematocrits normal CMP chronic renal insufficiency, not changed, bilirubin improved, mild nonspecific alkaline phosphatase elevation ECG Interpretation ECG Interpretation: Ventricular-paced complex, rate 67 Time: 15:53 Interpreted by: ED physician X-Ray Chest Interpretation Chest Xray Interpretation: IMPRESSION: 1. Decreased conspicuity of right apical nodule with increased groundglass opacities likely represent post treatment changes. Dictated by: Sumeet Blue M.D. on 05/08/2017 at 17:16 Approved by: Sumeet Blue M.D. on 05/08/2017 at 17:20 View: Portable, 1 view Interpretation / Wet Read by: Interpret - Radiologist Re-Eval/Medical Decision Med Decision/Clinical Course This is a pleasant 86-year-old male who is status post a recent sphincterotomy, biliary stent, and common bile duct mass biopsy in recent weeks he presents complaining of new onset dark stool, orthostasis status, and weakness with concern for GI bleed. Patient's biopsy was negative for malignancy. The patient had restarted his anticoagulated Xarelto atrial fibrillation and had been doing okay up until the past few days we noticed increasing weakness. Today he really noticed dark stool from his colostomy, felt like he is going to collapse, called the GI provider and was referred in. Here in the department reports sitting down he feels okay and has no specific complaint. He appears mildly pale, but not toxic. His blood pressure is on the low in the 101 systolic, he reports his blood pressures are normally around 120 systolic and generally does not have issues with hypo-tension. They does state that if he felt the be stood up he might be lightheaded, and indeed after labs demonstrated no overt anemia, and we performed orthostatic vitals, he was orthostatic with a blood pressure dropping into the low 90s, and coming symptoms. He did not develop tachycardia. He reports normal intake with no overt reason for him to be volume depleted. He denies new medication changes. He denies fevers chills or systemic illness symptoms. He does not demonstrate any garrido of fever or overt signs of infection. Labwork including serial hematocrits revealed no anemia, and his LFTs specifically his bilirubins improved. He does have some chronic renal insufficiency and that is unchanged. His stool is dark and does appear malonic , but the guaiac was borderline positive, by this it was not overtly blue, and the nurse and I had to debate as to whether or not call it positive or not. And in this setting where every thing else suggested we called it positive, but I have explained to everyone involved that it is intermediate, in difficult to determine. It is certainly not as guaiac positive as one might expect given the history and findings. She has been gently hydrated. Wrist awaiting a urine sample to look for other sources such as a urinary tract infection might cause the symptoms. However given his recent procedure which puts him at high risk for bleeding, location, as well as his anticoagulated status, the plan is an observation admission for serial hematocrits, serial guaiacs. GI will follow. The case is discussed the hospitalist. Source of Hx: Old records Re-Evaluation/Progress : Time of Eval: 16:32 Re-Evaluation/Progress Note: Pt rechecked. Discussed plan for admission. Pt understands and agrees with plan. All questions addressed at this time. Consultation #1: Referral / Consult Name: Papa Simpson MD Call Returned at: 17:21 Tank Cooper: Agrees with eval, Agrees with plan Note: Discussed pt's case with surgical specialist, Dr. Simpson. Consultation #2: Referral / Consult Name: Susan Lopez MD Consulted With: Hospitalist Call Returned at: 17:45 Tank Cooper: Will see patient, Agrees with plan, Accepts admit Note: Discussed pt's case with hospitalist, Dr. Lopez. She accepts admission. Differential Diagnosis: Positive: GI Bleed, Negative: Anal fissures, Angiodysplasia, Clemencia-Novoa syndrome, Ulcerative colitis Counseled Regarding: Diagnosis, Lab results, Need for admission Discharge & Departure Impression: Primary Impression: GI bleed GI bleed type/associated pathology: unspecified gastrointestinal hemorrhage type Qualified Code: K92.2 - Gastrointestinal hemorrhage, unspecified Additional Impressions: Anticoagulated by anticoagulation treatment Orthostasis Disposition: ADMITTED TO HOSPITAL Discharge Condition All VS Reviewed: Yes Condition: Stable Referrals: Heber Du DO (PCP) Scribe Attestation Portions of this note were transcribed by Marylu Bella. I, Dr. Biswas, personally performed the history, physical exam and medical decision-making; I reviewed and confirmed the accuracy of the information in the transcribed note. copies to: Heber Du Matthew F MD May 08, 2017 15:48 Marylu Bella 3, 2017 16:04
[2017-05-08 16:11] LABS: BASOPHILS % (AUTO) 0.3 % (0-3); EOSINOPHILS % (AUTO) 3.1 % (0-5); MONOCYTES % (AUTO) 9.7 % (4-12); Mean Corpuscular Hemoglobin 31.4 pg (27.0-35.0); NEUTROPHILS % (AUTO) 63.3 % (40-74); Platelet Count 175 bil/L (150-400)
[2017-05-08 16:26] LABS: INR 1.1 ratio
[2017-05-08 16:35] LABS: TROPONIN T < 0.010 ug/L (0.0-0.011)
[2017-05-08] MEDS ORDERED: 0.9% Sodium Chloride 500 ML IV ONE (17:20)
--- NOTE | 2017-05-08 17:21 | DRSVH ---
PROCEDURE: X-RAY CHEST ONE VIEW, PORTABLE ([id number]) INDICATIONS: SOB TECHNIQUE: One view of the chest was acquired. COMPARISON: [facility], CT, CT CHEST WO CON, 04/06/2017, 9:09. [facility], CR, XR CHEST 2VW, 02/04/2017, 8:36. [facility], CR, XR CHEST 1VW (PORTABLE), 12/01/2016, 1 1:15. FINDINGS: Surgical changes and devices: Left chest wall dual-lead pacemaker appears stable in position. Postsu rgical changes are redemonstrated in the mediastinum. Lungs and pleura: No pleural effusions or pneumothorax. Irregular nodule is redemonstrated within t he right apex, decreased in prominence compared to the prior study with ill-defined margins. There a re increased associated groundglass opacities in the right apex. The findings likely represent post treatment changes. The left lung is clear. Mediastinum: Mediastinal contours appear unchanged. Heart size is enlarged. Bones and chest wall: No suspicious bony lesions. Overlying soft tissues appear unremarkable. IMPRESSION: 1. Decreased conspicuity of right apical nodule with increased groundglass opacities likely represen t post treatment changes. Dictated by: Sumeet Blue M.D. on 05/08/2017 at 17:16 Approved by: Sumeet Blue M.D. on 05/08/2017 at 17:20
[2017-05-08] MEDS ORDERED: Alum-Mag Hydrox-Simeth 30 mL Suspension PO PRN ×2 (18:25→18:30)
[2017-05-08] MEDS ORDERED: Ondansetron 2 mg/mL 2 mL Inj IVPUSH PRN ×2 (18:25→18:30)
[2017-05-08] MEDS ORDERED: 0.9% Sodium Chloride 1,000 ML IV SCH (18:25)
[2017-05-08] MEDS ORDERED: Polyethylene Glycol (PEG) 17 Gm Powder PO PRN (18:30)
[2017-05-08 20:42] LABS: APPEARANCE,URINE CLEAR (CLEAR,HAZY); COLOR,URINE YELLOW (YELLOW); OCCULT BLOOD,URINE TRACE (NEGATIVE); PH,URINE 5.5 (5.0-8.0); UROBILINOGEN,URINE NORMAL (NORMAL)
--- NOTE | 2017-05-08 20:43 | PCM.HPMED ---
Subjective Date of Service May 08, 2017 Primary Provider: Admitting Physician: Rosmery Perez DO Primary Care Physician: Heber Du DO Attending Physician: Rosmery Perez DO Admit Status: From the Emergency Department Chief Complaint: Possible GI bleed History of Present Illness: Mr. Liu is an 86-year-old male with past medical history of Mnire's disease , CHF, pacemaker, distant history of lung cancer, hypertension, CABG, and a-fib on Xarelto who presented to the ED secondary to concern of GI bleed with reported melena from his colostomy bag 1 day. He states that he has felt weaker for at least a couple days "like something is draining out of me" which has resulted in a low energy level and low appetite. Today he was taking shower when he got lightheaded. This resolved after sitting down. He denies any nausea or vomiting fever or chills, chest pain but does state that he has somewhat short of breath for the last week and has had a sore throat. States he has lost approximately 30-40 pounds unintentionally over the last year which he attributes to his decreased appetite. He received endoscopy ultrasound on showing evidence of recent sphincterotomy and biliary stent placement for distal common bile duct mass, bile duct brushings were negative for dysplasia or malignancy, suggestion for choledocholithiasis. Patient states that in addition to the lightheadedness which is worse when standing or taking hot showers his had some episodes of diaphoresis, shortness of breath 1 week nausea and generalized weakness. He does not state any chest pain fevers/chills , headaches, abdominal pain. In the ED stool guaiac was said to be borderline positive, "not overtly blue" and was determined to be inconclusive. He received gentle hydration. GI consult from .orders are to hold Xarelto and continue to monitor H&H. Review of Systems: A comprehensive review of systems was conducted with the patient and found to be negative except as above in the history of present illness. Allergies Coded Allergies: Penicillins (Verified Allergy, Severe, Doesn't Remember - 40 years ago, 05/08/17) Home Medications Atorvastatin Calcium (Atorvastatin Calcium) 20 Mg Tablet 20 MG PO HS Furosemide (Furosemide) 20 Mg Tab 30 MG PO QAM Lisinopril (Lisinopril) 10 Mg Tablet 10 MG PO QAM Magnesium Oxide (Magnesium) 250 Mg Tablet 250 MG PO QAM Metoprolol Tartrate (Metoprolol Tartrate) 100 Mg Tablet 100 MG PO BID Multivit-Min/Iron Fum/Folic AC (Qnxja-Pdvpwlz-Rrmxjdee Tablet) 7.5 Mg Iron-400 Mcg Tablet 1 EACH PO DAILY [place]-3 Fatty Acids (Fish Oil) 500 Mg Capsule. 1,000 MG PO BIDWM Rivaroxaban (Xarelto) 15 Mg Tablet 15 MG PO DAILY PMH Angina Atrial fibrilllation (anticoagulated) MENIERE'S disease Common bile duct mass, pathology negative on biopsy 04/26/2017 History of prostate cancer Medical diagnosis of right upper lobe mass with hyper-med volatile behavior on PET scan, clinically consistent with a non-small cell lung CA per oncology consultation by Dr. 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 CABG in 1995, reviewed 2004 for common bile duct mass pathology negative for malignancy Stent in biliary duct on 04/26/17 Family History Father of Old age, passing in his bead Mother age 87, was Dx with diabetes 2 years prior to her Social History Hx Alcohol Use: No Hx Substance Use: No Hx Tobacco Use: No Smoking Status: Former Smoker Living Arrangement: with Family Exam Vital Signs Vital Sign - Last Date Time Temp Pulse Resp B/P Pulse Ox O2 Delivery O2 Flow Rate FiO2 05/08/17 20:28 36.4 60 20 126/73 99 Room Air Exam General: Awake alert sitting up in hospital bed in no acute distress, well- developed, well-nourished, appropriately interactive HEENT: Normocephalic, atraumatic. External ears without defect. Pupils equal, round, and reactive to light and accommodation. Oropharynx free of erythema and cobble stoning with moist mucosa. Neck: Supple with full range of motion. No jugular venous distension. Cardiovascular: Regular rate and rhythm with no murmurs Pulmonary: Clear to auscultation bilaterally with no crackles, wheezes, or rhonchi. Normal respiratory effort with no use of accessory muscles. Abdomen: Bowel tones present. Soft, nontender, nondistended. Colostomy bag in place lower left quadrant Extremities: No clubbing, cyanosis, edema Skin: Normal temperature, turgor, and texture Neurological: Cranial nerves grossly intact. Psychiatric: Normal mood and affect. Alert and oriented to person, place, and time. Lab and Diagnostics Result Diagram: 05/08/17 1752 05/08/17 1600 X-Rays, CTs and MRIs . X-RAY CHEST ONE VIEW, PORTABLE IMPRESSION: 1. Decreased conspicuity of right apical nodule with increased groundglass opacities likely represent post treatment changes. Dictated by: Sumeet Blue M.D. on 05/08/2017 Assessment & Plan Mr. Liu is an 86-year-old male with past medical history of Mnire's disease , CHF, pacemaker, distant history of lung cancer, hypertension, CABG, and a-fib on Xarelto who was admitted for possible GI bleed. Possible GI bleed. POA. Ongoing History of early stage colon cancer, resected by subtotal colectomy 1997 with resultant colostomy bag placement. -GI consult by ED physician, will see patient tomorrow -Hgb stable ~14. Continue to trend -Protonix 20 mg oral twice a day -IV fluids 100 mL per hour Acute on chronic kidney injury, present on admission. Ongoing Prior levels have shown a baseline creatinine 1.44 11/2016, 1.46 01/2017, on creatinine was 1.07. Today 1.38. -Normal saline 100 mL per hour Hyponatremia, present on admission. Ongoing -IV fluids -Continue to monitor Hypertension, not present on admission. Stable -Held home hypertensive meds secondary to hemodynamic state Hyperlipidemia, present on admission. Ongoing -Held home atorvastatin secondary to elevated liver enzymes -Continue to monitor Atrial fibrillation, present admission. Ongoing -Currently rate controlled, -Continue home metoprolol -Cont Telemetry CODE STATUS: Patient wishes to remain full code Patient Status: Patient was admitted under inpatient status with expected length of stay greater than two midnights due to severity of presenting symptoms , risk of adverse event, and complexity of treatment plan. GI Prophylaxis: Proton Pump Inhibitor VTE Prophylaxis: SCDs Resuscitation Status: CPR: Attempt Resuscitation Attending Statement The patient was seen and examined together with house staff on 05/08/2017 and I agree with the history, exam and plan as outlined in the note above. ZAMZAM RAE DO May 08, 2017 20:43 Rosmery Perez DO May 09, 2017 03:44
[2017-05-08] MEDS: Pantoprazole 20 mg ER24 Tablet PO SCH (23:03)
[2017-05-08] MEDS: 0.9% Sodium Chloride 1,000 ML IV SCH (23:04)
--- NOTE | 2017-05-08 23:25 | NUR ---
NOC/Admit Pt is alert and oriented. Denies any chest pain, sob, n/v or abd discomfort. Finished admit questions. Guiac and UA sent to lab. Pt's VSS. IVF running 100 ml/hr as ordered. Telemetry noted V-paced 62. Continuing frequent rounding.
[2017-05-09 04:04] VITALS: BP 138/78; PULSE 60; RESP 20; O2SAT 97
[2017-05-09 06:28] LABS: BASOPHILS % (AUTO) 0.2 % (0-3); EOSINOPHILS % (AUTO) 4.9 % (0-5); Mean Corpuscular Hemoglobin 31.3 pg (27.0-35.0); Mean Corpuscular Volume 91.1 fL (81-100); NEUTROPHILS % (AUTO) 60.5 % (40-74); Platelet Count 146 bil/L (150-400)
[2017-05-09] MEDS: 0.9% Sodium Chloride 1,000 ML IV SCH (08:00)
[2017-05-09 08:22] VITALS: BP 128/76; PULSE 61; RESP 16; O2SAT 96
[2017-05-09] MEDS: Pantoprazole 20 mg ER24 Tablet PO SCH (08:57)
[2017-05-09 10:44] VITALS: PULSE 61
--- NOTE | 2017-05-09 10:46 | CONS ---
[address] [address] CONSULTATION REPORT PATIENT: SOPHIE MORAN : 1930 MR#: [id number] ADMIT: 05/08/2017 JOB ID: [id number] DATE OF SERVICE: 05/09/2017 REASON FOR CONSULTATION: Melena. HISTORY OF PRESENT ILLNESS: An 86-year-old, male, with history of Meniere's disease, CHF, pacemaker, distal history of lung cancer, hypertension, CABG, atrial fibrillation, on Xarelto. He has an ileostomy bag, and history of colon cancer, resected, subtotal colectomy in 1987. Presents here with melena x1 day. The patient states that on April 26, 2017, he underwent an endoscopic ultrasound at that point in time for a common bile duct mass, and later along with an ERCP with sphincterotomy and biliary stent placement for distal common bile duct mass at that time. The patient was doing well for a few days, and afterwards having one or two days of melanotic episodes through his ileostomy bag. The patient was then admitted here through the emergency department. His hemoglobin upon admission was 14.0, and has been stable at 13.3. The patient denies family history of colon cancer, inflammatory bowel disease, or celiac disease. The patient presents for further evaluation. 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 ALLERGIES: PENICILLIN. MEDICATIONS AT HOME: Atorvastatin, lisinopril, furosemide, magnesium oxide, metoprolol, multivitamin, Xarelto, and fish oil. SOCIAL HISTORY: He is a former smoker. No IV drug use. No alcohol. FAMILY HISTORY: Noncontributory. REVIEW OF SYSTEMS: The patient denies headache, blurred vision, nausea, vomiting, chest pain, shortness of breath, abdominal pain, skin rash. PHYSICAL EXAMINATION: Vital signs upon presentation: Temperature 36.7, pulse 61, respiratory rate 16, blood pressure 120/76, satting 96% on room air. General: In no acute distress. Head: No scars. Eyes: Anicteric. Throat: Supple. Lungs: Clear to auscultation bilaterally. Cardiovascular: Regular rhythm and rate. Abdomen: Soft, nondistended, nontender. Normal bowel sounds. Extremities: No cyanosis, clubbing or edema. LABORATORIES: White count 5.5, hemoglobin 13.3, hematocrit 38, platelet count of 146. Chemistries show sodium 139, potassium 4.4, chloride 106, bicarb 18, BUN 27, creatinine 1.1, glucose 99, calcium 8.6, total bili 2.1, AST of 36, ALT 44, alk phos 178. Troponin is negative. Total protein 6.1, albumin 3.2, lipase 32. PT 11.8, INR 1.1. ASSESSMENT AND PLAN: This is an 86-year-old, male, history of Meniere's disease, congestive heart failure (CHF), pacemaker, history of lung cancer, hypertension, coronary artery bypass graft (CABG), atrial fibrillation, on Xarelto, history of prostate cancer treated with radioactive seed implant and external beam radiation, complicated by radiation proctitis leading to APR and permanent ileostomy in 2005, status post ERCP with biliary sphincterotomy and biliary stent for common bile duct mass from April 26, 2017, who presents here for melena x1 day. Differential diagnosis includes esophagitis, gastritis, peptic ulcer disease, or possible recent bleed from the sphincterotomy site. Given the fact the hb stable 13.0 and no overt signs gi bleed, I would recommend pt to follow up with Dr. Jigar Law MD as an outpatient. Pt agrees RECOMMENDATIONS: 1) ok d/c home today from gi standpoint 2) follow up with Dr. Jigar Law MD as an outpatient. will sign off MTDD
--- NOTE | 2017-05-09 11:34 | PCM.DIMED ---
Discharge Instructions Date of Service May 09, 2017 Dates of Hospitalization May 08, 2017 at 18:05 Discharge Diagnosis Discharge Diagnosis Melena, resolved Diet Discharge Diet: Heart Healthy Activity Discharge Activity: Other (this is tolerated) Call your provider Call your provider for: Fever or Chills, Shortness of breath, Bleeding, Chest pain, Vomitting, Excessive diarrhea, Weakness (unilateral) Patient Instructions Follow-up Provider: Heber Du DO Follow-up with PCP in: Other (4 to 5 days, sooner if problems) Provider: Jigar Law MD Follow-up in: 2 weeks (or sooner if problems) Susan Lopez MD May 09, 2017 11:34
--- NOTE | 2017-05-09 11:36 | NUR ---
Social Work-initial assessment/discharge: Data:See initial assessment.Pt is a 86 y/o male who was admitted on 05/08/17 for GI Bleed per H&P. Pt's insurance is MCR and A[employer] supp and PCP is Heber Du DO. EMR Reviewed. GELY met with pt at bedside, SW role explained. Pt is alert and oriented x3. Pt resides at home with his where he remains independent with ADLS. Pt drives and does not use any DME. Pt has no HH or SNF history. Pt has no halfway care insurance or VA benefits. SW discussed DPOA/ advanced directive, pt confirms this has been completed, SW encouraged a copy to be brought in. No concerns noted from RN or Md regarding pt's capacity for self care. Pt has been up independent in his room. Pt has his own colostomy that he manages on his own. Pt had concerns about insurance covering procedure and hospital stay, SW explained that SW cannot guarantee insurance will cover fully, but typically insurance will cover. Pt is agreeable. Pt states his will be providing transprot home today. SW provided pt with discharge planning checklist and encouraged pt to call with any questions, phone number provided on white board in room. No MD orders obtained. No discharge needs identified. All updated and agreeable to plan. Assessment:pt who is independent at baseline. Plan:Pt to discharge home today via POV. No discharge needs identified. All updated and agreeable to plan. WANG Willett Addendum: 05/09/17 at 1142 by ASHLEE BOWEN Amended: Links added.
[2017-05-09 11:40] VITALS: BP 134/73; PULSE 59; RESP 18; O2SAT 96
--- NOTE | 2017-05-09 13:19 | NUR ---
Discharge Pt d/cd home with at 1305 via wc by an aide. VSS, all personal belongings left home with pt. Discharge teaching discussed with pt, pt denied having questions. Stated will call today for f/u appt with pcp and GI.
--- NOTE | 2017-05-09 13:25 | PCM.DC.MED ---
Discharge Summary Date of Service May 09, 2017 Dates of Hospitalization Date of Hospital Admission May 08, 2017 at 18:05 Date of Discharge: May 09, 2017 Providers: Admitting Physician: Rosmery Perez DO Primary Care Physician: Heber Du DO Attending Physician: Rosmery Perez DO Diagnosis at Time of Discharge Diagnosis at Time of Discharge Melena, resolved Procedures XRay, CTs & MRIs . X-RAY CHEST ONE VIEW, PORTABLE IMPRESSION: 1. Decreased conspicuity of right apical nodule with increased groundglass opacities likely represent post treatment changes. Dictated by: Sumeet Blue M.D. on 05/08/2017 Brief History Mr. Liu is an 86-year-old male with past medical history of Mnire's disease , CHF, pacemaker, distant history of lung cancer, hypertension, CABG, and a-fib on Xarelto who presented to the ED secondary to concern of GI bleed with reported melena from his colostomy bag 1 day. He states that he has felt weaker for at least a couple days "like something is draining out of me" which has resulted in a low energy level and low appetite. Today he was taking shower when he got lightheaded. This resolved after sitting down. He denies any nausea or vomiting fever or chills, chest pain but does state that he has somewhat short of breath for the last week and has had a sore throat. States he has lost approximately 30-40 pounds unintentionally over the last year which he attributes to his decreased appetite. He received endoscopy ultrasound on showing evidence of recent sphincterotomy and biliary stent placement for distal common bile duct mass, bile duct brushings were negative for dysplasia or malignancy, suggestion for choledocholithiasis. Patient states that in addition to the lightheadedness which is worse when standing or taking hot showers his had some episodes of diaphoresis, shortness of breath 1 week nausea and generalized weakness. He does not state any chest pain fevers/chills , headaches, abdominal pain. In the ED stool guaiac was said to be borderline positive, "not overtly blue" and was determined to be inconclusive. He received gentle hydration. GI consult from .orders are to hold Xarelto and continue to monitor H&H. Hospital Course Mr. Liu is an 86-year-old male with past medical history of Mnire's disease , CHF, pacemaker, distant history of lung cancer, hypertension, CABG, and a-fib on Xarelto who was admitted for possible GI bleed. Possible GI bleed. POA. Ongoing History of early stage colon cancer, resected by subtotal colectomy 1997 with resultant colostomy bag placement. -GI consult by ED physician, will see patient tomorrow -Hgb stable ~14. Continue to trend -Protonix 20 mg oral twice a day -IV fluids 100 mL per hour -Patient has had stable hemoglobin and hematocrit and per gastroenterology Dr. Briones can go home and have follow-up with primary care and gastroenterology for possible scope electively Acute on chronic kidney injury, present on admission. Improved at discharge Prior levels have shown a baseline creatinine 1.44 11/2016, 1.46 01/2017, on creatinine was 1.07. Today 1.38. -Normal saline 100 mL per hour Hyponatremia, present on admission. Resolved at discharge -IV fluids -Continue to monitor Hypertension, not present on admission. Stable -Held home hypertensive meds secondary to hemodynamic state -Resume medications upon discharge Hyperlipidemia, present on admission. Ongoing -Held home atorvastatin secondary to elevated liver enzymes -Continue to monitor -Resume medications upon discharge Atrial fibrillation, present admission. Ongoing -Currently rate controlled, -Continue home metoprolol -Xarelto and metoprolol resumed at discharge CODE STATUS: Patient wishes to remain full code Patient Status: Patient was admitted under inpatient status with expected length of stay greater than two midnights due to severity of presenting symptoms , risk of adverse event, and complexity of treatment plan. Exam Vital Signs (Last) Date Time Temp Pulse Resp B/P Pulse Ox O2 Delivery O2 Flow Rate FiO2 05/09/17 11:40 36.6 59 18 134/73 96 Room Air Exam Constitutional: Elderly male in no acute distress Head: Normocephalic atraumatic Mouth: No lesions Neck: No adenopathy Chest: Clear to auscultation Abdomen: Soft nontender bowel sounds present colostomy in place Extremities: No pedal edema Skin: No rashes Psych: Mood and affect are appropriate Neuro: Alert and oriented 3, motor strength is intact bilaterally Test 05/08/17 16:00 05/08/17 20:29 05/09/17 06:05 Prothrombin Time 11.8sec (8.1-12.5) Prothromb Time International Ratio 1.10ratio Troponin T < 0.010ug/L (0.0-0.011) Lipase 32U/L (13-60) Urine Color Yellow (YELLOW) Urine Appearance Clear (CLEAR,HAZY) Urine pH 5.5 (5.0-8.0) Urine Specific [place] 1.015 (1.003-1.035) Urine Protein Negativemg/dL (NEG,TRACE) Urine Glucose (UA) Negativemg/dL (NEGATIVE) Urine Ketones Negativemg/dL (NEGATIVE) Urine Occult Blood Trace (NEGATIVE) Urine Nitrite Negative (NEGATIVE) Urine Bilirubin Negative (NEGATIVE) Urine Urobilinogen Normalmg/dL (NORMAL) Urine Leukocyte Esterase Negative (NEGATIVE) Urine RBC 0-2/hpf (0-2) Urine WBC 0-5/hpf (0-5) Urine Epithelial Cells None/hpf (NONE-MOD) Urine Crystals None seen (NONE SEEN) Urine Bacteria Few/hpf (NONE-FEW) Urine Hyaline Casts None/lpf (NONE) Urine Granular Casts None seen (NONE SEEN) Urine Waxy Casts None seen (NONE SEEN) Urine Red Blood Cell Casts None seen (NONE SEEN) Urine White Blood Cell Casts None seen (NONE SEEN) Urine Mucus None seen (None Seen) Urine Trichomonas None seen (NONE SEEN) Urine Yeast None (NONE SEEN) Urinalysis Comment None Urine Culture Reflexed Not indicated White Blood Count 5.5th/mm3 (3.8-10.1) Red Blood Count 4.25mil/mm3 (4.40-5.80) Hemoglobin 13.3g/dL (13.8-17.2) Hematocrit 38.7% (41.0-50.0) Mean Corpuscular Volume 91.1fL (81-100) Mean Corpuscular Hemoglobin 31.3pg (27.0-35.0) Mean Corpuscular Hemoglobin Concent 34.4% (32.0-37.0) Red Cell Distribution Width 13.4% (12.3-15.4) Platelet Count 146bil/L (150-400) Neutrophils (%) (Auto) 60.5% (40-74) Lymphocytes (%) (Auto) 24.9% (14-46) Monocytes (%) (Auto) 9.0% (4-12) Eosinophils (%) (Auto) 4.9% (0-5) Basophils (%) (Auto) 0.2% (0-3) Sodium Level 139mEq/L (134-144) Potassium Level 4.4mEq/L (3.5-5.2) Chloride Level 106mEq/L (97-108) Carbon Dioxide Level 18mmol/L (18-29) Blood Urea Nitrogen 27mg/dL (8-27) Creatinine 1.17mg/dL (0.76-1.27) Estimat Glomerular Filtration Rate 63mL/min (>59) Glucose Level 99mg/dL (60-99) Calcium Level 8.6mg/dL (8.5-10.1) Total Bilirubin 2.1mg/dL (0.0-1.2) Aspartate Amino Transf (AST/SGOT) 36U/L (0-50) Alanine Aminotransferase (ALT/SGPT) 44U/L (0-44) Alkaline Phosphatase 178U/L (25-160) Total Protein 6.1g/dL (6.4-8.4) Albumin 3.2g/dL (3.4-5.0) Discharge Medications Discharge Medications Atorvastatin Calcium (Atorvastatin Calcium) 20 Mg Tablet 20 MG PO HS (Reported) Furosemide (Furosemide) 20 Mg Tab 30 MG PO QAM (Reported) Lisinopril (Lisinopril) 10 Mg Tablet 10 MG PO QAM (Reported) Magnesium Oxide (Magnesium) 250 Mg Tablet 250 MG PO QAM (Reported) Metoprolol Tartrate (Metoprolol Tartrate) 100 Mg Tablet 100 MG PO BID (Reported ) Multivit-Min/Iron Fum/Folic AC (Qejma-Nymloal-Ahkrfjiq Tablet) 7.5 Mg Iron-400 Mcg Tablet 1 EACH PO DAILY (Reported) [place]-3 Fatty Acids (Fish Oil) 500 Mg Capsule.dr 1,000 MG PO BIDWM (Reported) Rivaroxaban (Xarelto) 15 Mg Tablet 15 MG PO DAILY (Reported) Followup Plan Discharge Diet: Heart Healthy Discharge Activity: Other (this is tolerated) Follow-up Provider: eHber Du DO Follow-up with PCP in: Other (4 to 5 days, sooner if problems) Provider: Jigar Law MD Follow-up in: 2 weeks (or sooner if problems) Time spent 60 minutes Susan Lopez MD May 09, 2017 13:25
== END 2017-05-09 13:11 | disposition home or self-care (01) | DRG 379 ==
LOC: SED 15:17 → MPC 18:05
PROVIDERS: ADMIT Internal Medicine; ATTEND Internal Medicine
DX: K92.1 Melena (principal); H81.09 Meniere's disease, unspecified ear; I25.10 Atherosclerotic heart disease of native coronary artery without angina pectoris; I48.91 Unspecified atrial fibrillation; E78.5 Hyperlipidemia, unspecified; I10 Essential (primary) hypertension; Z85.118 Personal history of other malignant neoplasm of bronchus and lung; Z87.891 Personal history of nicotine dependence; Z95.1 Presence of aortocoronary bypass graft; Z98.890 Other specified postprocedural states; Z93.3 Colostomy status; Z85.038 Personal history of other malignant neoplasm of large intestine; Z79.01 Long term (current) use of anticoagulants; Z95.0 Presence of cardiac pacemaker

== ENCOUNTER → 2017-05-25 | Day surgery (SDC) | payer MEDICARE ==
[2017-05-25] VITALS (9 sets, daily range): BP systolic 117–153; BP diastolic 57–78; PULSE 59–62; RESP 13–19; O2SAT 95–100
[~2017-05-25] VITALS: Ht 180.3 cm; Wt 82.5 kg
[~2017-05-25] MED LIST changes: +Atropine 0.4 mg/mL Inj IVPUSH PRN; +EPHEDrine Sulfate 50 mg/mL Inj IVPUSH PRN; +HYDROmorphone 1 mg/mL Inj IVPUSH PRN; +Labetalol 5 mg/mL 20 mL Inj IV PRN; +Lactated Ringer's 1,000 ML IV ONE; +Lactated Ringer's 1,000 ML IV SCH; +Lactated Ringer's 500 ML IV PRN; +MetoCLOpramide 5 mg/mL 2 mL Inj IVPUSH PRN; +Ondansetron 2 mg/mL 2 mL Inj IVPUSH PRN; +Phenylephrine 10,000 mCg/mL Inj IVPUSH PRN; +fentaNYL-PF 50 mCg/mL 2 mL Inj IVPUSH PRN
--- NOTE | 2017-05-25 08:29 | PCM.HPANE ---
Patient Data Surgeon Admitting Provider: Attending Provider:iJgar Law MD Primary Care Physician:Heber Du DO Other Provider:Dara Julien Anesthesia Reason for Visit Common Bile Duct Mass Ht/WT & BMI Height (Feet): 5 Height (Inches): 11 Weight (Kilograms): 82.55 Body Mass Index 25.00 Allergies Coded Allergies: Penicillins (Verified Allergy, Severe, Doesn't Remember - 40 years ago, ) Past Anesthesia History Anesthesia History: Denies:: Abnormal Airway, Anesthesia Reactions, Difficult Intubation, Fam Anesthesia Reaction, Fam Malignant Hypertherm, Malignant Hyperthermia Diabetes History Hx Diabetes?: No MRSA MRSA: No Medications Blood Thinner: Xarelto Reported Medications Magnesium Oxide (Magnesium)250 Mg [id number] Mg PO QAM 11/16/16 Multivit-Min/Iron Fum/Folic AC (Gycdc-Zgrfsff-Dqfeyipm Tablet)7.5 Mg Iron-400 Mcg Tablet1 Each PO DAILY 11/16/16 Rivaroxaban (Xarelto)15 Mg Huelwe66 Mg PO DAILY 11/16/16 Furosemide 20 Mg Tab30 Mg PO QAM Ref 0 11/16/16 Lisinopril 10 Mg Gtuwff67 Mg PO QAM Ref 0 11/16/16 Metoprolol Tartrate 100 Mg Vhmdui319 Mg PO BID Ref 0 11/16/16 Atorvastatin Calcium 20 Mg Qjwlsz13 Mg PO HS Ref 0 11/16/16 [place]-3 Fatty Acids (Fish Oil)500 Mg Capsule.dr1,000 Mg PO BIDWM 06/17/14 Last Time Dose Received Off xarelto since tuesday. No meds taken today History History of ENT Problems?: No HEENT History: Positive for:: Hearing Problem Denies:: Abnormal Airway Cataracts (had surg 2013) Difficult Intubation Dysphagia Sinus Problem Denture Type: None Teeth Condition: Within Normal Limits Hx of Heart Problems?: Yes Cardiovascular History: Positive for:: Atrial Fibrillation (A FIB/FLUTTER/ ABLATION/A FIB NOW NSR & PACER) Cardiac Surgery (HEART CATH 2004/CABG 3 VESSEL X2/ABLATION/PACER) Congestive Heart Failure Edema Hypertension Irregular Heartbeat Pacemaker Denies:: AICD Chest Pain Heart Murmur Rheumatic Fever Thrombophlebitis Valvular Heart Disease Other History/Comments No CP; Greater than 4 mets Hx of Respiratory Problem?: Yes Respiratory History: Positive for:: Chest Surgery (HEART BYPASS) Pneumonia (as an ) Denies:: Asthma COPD Cough Dyspnea Emphysema Hemoptysis Tuberculosis Hx Neurologic Problems?: Yes Neurological History: Positive for:: Dizziness (MENIERE'S) Denies:: Alzheimer's Disease CVA Dementia Headaches Parkinson's Disease Seizures Hx of GI Problems?: Yes Hx of Problems?: No Genitourinary History: Denies:: HX of Hemodialysis Kidney Stones Urinary Tract Infection HX of Peritoneal Dialysis: No Male Hx: Positive for:: Prostate Problems (PROSTATE CA 1994) Denies:: Scrotal Mass Testicular Surgery Skin History: Denies:: History Skin Disorders? Pressure Ulcers Hx Musculoskeletal Problems?: No Musculoskeletal History: Denies:: Back Injury Joint Replacement Musculoskeletal Trauma Hx of Psycho/Social Problems?: No Psycho Social History: Denies:: Anxiety Bipolar Disorder Hx Depression Suicide Attempt Hx Surgeries?: Yes (multiple) Hx Any Other Health Problems?: Yes Other History: Positive for:: Cancer ([id number]) Hospitalization Denies:: Endocrine Disease Thyroid Disease History Blood Transfusions: Positive for:: Blood Transfusions Denies:: Blood Transfuse Reaction Hx Diabetes: No Hx Alcohol Use: NoHx Substance Use: No Smoking Status: Former Smoker Have You Smoked inLast 12 mo: No Stop/Bang Treated for Sleep Apnea?: No Do You Have a CPAP Machine?: No T-Tired: feel tired, fatigued: No O-Obsered: Observed not breath: No P-Blood Pressure: treated: Yes B- Body Mass Index > 35 kg/m2: No A- Age over 50: Yes N- Neck Large Circumference: No G- Gender Male: Yes Risk Assessment Category Category 1A: Patient has history of documented sleep apnea, and HAS NOT received any narcotic, sedative or anesthesia administration during this stay. Category 1B: Patient has history of documented sleep apnea, and HAS received any narcotic , sedative or anesthesia administration during this stay Category 2: Patient has SUSPECTED Obstructive Sleep Apnea, and HAS received any narcotic , sedative or anesthesia administration during this stay. Category 3: Patient has SUSPECTED Obstructive Sleep Apnea and HAS NOT received narcotic, sedative or anesthesia administration during this stay. Category 4: Outpatient in Procedural Areas with known sleep apnea or who screen positive for High Risk via the STOP/BANG questionnaire. Exam Exam Vital Signs Vital Signs Date Time Temp Pulse Resp B/P Pulse Ox O2 Delivery O2 Flow Rate FiO2 05/25/17 08:13 59 19 119/68 96 Room Air General Appearance: Alert, Oriented X3 HEENT/AIRWAY: MP 2, Neck Movement (FROM) Lungs: Clear to Auscultation, Clear to Percussion Heart: Exam Unremarkable, Regular Rate/Rhythm Plan Impression Patient chart reviewed, patient interviewed and anesthestic plan with risks, benefits, and alternatives discussed, and informed consent obtained. ASA Physical Status: ASA3 Severe Disease Anesthetic Plan: GA Bene/Risks/Altern/Consents: Yes HP Complete Prior to Induction: Yes Other Pacer order in chart Magnet will be used if cautery is used Chinedu Madrid MD May 25, 2017 08:29
--- NOTE | 2017-05-25 09:54 | PCM.ANEP1 ---
Post Anesthesia PACU Phase 1 Assessment Vital Signs Vital Signs Date Time Temp Pulse Resp B/P Pulse Ox O2 Delivery O2 Flow Rate FiO2 05/25/17 08:13 59 19 119/68 96 Room Air Anesthetic Administered: GA Level of Alertness: Awake, talking CONTRERAS's with Equal Strength: Yes Pain: No Nausea or Vomiting: No CV Function & Hydration Stable: Yes Airway Device: Lungs: Clear to Auscultation, Clear to Percussion PACU Phase 2 Assessment Complications: No Follow up Care: No Patient Instructions Provided: N/A Comments See anesth records for PACU VS> PACU VSS Chinedu Madrid MD May 25, 2017 09:54
--- NOTE | 2017-05-25 10:17 | ENDO ---
[address] [address] ENDOSCOPY PROCEDURE PATIENT: SOPHIE MORAN : 1930 MR#: [id number] ADMIT: 05/25/2017 JOB ID: [id number] DATE: 05/25/2017 PROCEDURE: Endoscopic retrograde cholangiopancreatography. INDICATION: Suspected distal CBD mass versus stone. Please see anesthesia report for details regarding ASA classification, Mallampati score and medications. INSTRUMENT USED: TJF Q 180 V. PROCEDURE DETAILS: 1. After informed consent was obtained, the patient was brought into the GI suite, where he was placed under general anesthesia. Then he was placed in the standard ERCP position. Initial qa manager film demonstrated a previously placed biliary stent in place in the expected location. The side-viewing duodenoscope was then introduced through the bite block and advanced without difficulty to the second portion of the duodenum. Initial limited views of the esophagus stomach and duodenum appeared unremarkable. We identified the biliary stent and we removed the stent using a standard upper endoscope snare. Following removal of the stent, the bile duct was cannulated with an Olympus CleverCut tome. Initial cholangiogram demonstrated multiple filling defects in the distal CBD. No mass lesion was appreciated in the distal CBD. There was pneumobilia noted with contrast injection. 2. The common bile duct measured approximately 12 mm. Using a 9-12 mm inject from below balloon, several sweeps were performed which extruded fragmented, pigmented stones. Final cholangiogram demonstrated no further filling defects and there was rapid flow of contrast out of the bile duct. IMPRESSION: Choledocholithiasis status post extraction of multiple pigmented stones with balloon sweep. RECOMMENDATIONS: 1. Followup in GI clinic in 1-2 weeks and will repeat liver function tests at that time. 2. I would avoid anticoagulants for the next 24 hours. COMPLICATIONS: None. ESTIMATED BLOOD LOSS: Less than 5 mL.
--- NOTE | 2017-05-25 10:45 | DRSVH ---
PROCEDURE: X-RAY E.R.C. BILIARY DUCTS ([id number]) INDICATIONS: C-ARM ASSISTED STONE REMOVAL TECHNIQUE: Fluoroscopic spot films were acquired by the gastroenterology service during ERCP procedu re. COMPARISON: [facility], CR, XR ERC BILIARY DUCTS, 04/26/2017, 16:17. [facility] peg, CT, CT ABD PELVIS W CON, 04/27/2017, 19:27. FINDINGS: The extrahepatic bile duct is been opacified which appears generous in size. A sweeping ba lloon catheter is noted and there are several images that demonstrates small intraluminal filling def ects seen within the distal common bile duct proximal to the ampulla. No extravasation of contrast m edia. Intrahepatic bile ducts not visualized. Placement of an endobiliary prosthesis. IMPRESSION: 1. Prominence of the extrahepatic bile duct with several small intraluminal filling defect seen withi n the distal common bile left which could represent retained stones or gas bubbles. Recommend correl ation with real-time examination. 2. Placement of endobiliary prosthesis. Dictated by: Joaquin Yanez [facility] Interpreted: Nelly Britton MD on 05/25/2017 at 10:28 Approved by: Nelly Britton M.D. on 05/25/2017 at 10:43
== END | disposition home or self-care (01) ==
LOC: END 00:29
PROVIDERS: ATTEND Internal Medicine Gastroenterology
DX: K80.50 Calculus of bile duct without cholangitis or cholecystitis without obstruction (principal); K83.9 Disease of biliary tract, unspecified; E80.6 Other disorders of bilirubin metabolism; I12.9 Hypertensive chronic kidney disease with stage 1 through stage 4 chronic kidney disease, or unspecified chronic kidney disease; I95.9 Hypotension, unspecified; I25.10 Atherosclerotic heart disease of native coronary artery without angina pectoris; I49.5 Sick sinus syndrome; I48.92 Unspecified atrial flutter; N18.9 Chronic kidney disease, unspecified; I25.2 Old myocardial infarction; Z85.118 Personal history of other malignant neoplasm of bronchus and lung; Z85.46 Personal history of malignant neoplasm of prostate; Z93.2 Ileostomy status; Z95.1 Presence of aortocoronary bypass graft; Z95.0 Presence of cardiac pacemaker; Z79.01 Long term (current) use of anticoagulants; Z87.891 Personal history of nicotine dependence; Z96.89 Presence of other specified functional implants
CPT/HCPCS: 43264; 43275; 74328; J7120; Q9967